=== PATIENT | female | born 1945 | race Caucasian/White ===

== ENCOUNTER → 2017-01-14 | Outpatient (CLI) | payer MEDICARE, BC ==
--- NOTE | 2017-01-14 15:24 | RADRPT ---
PROCEDURE: XR Left Hip and pelvis. CLINICAL INDICATION: Left hip pain. Pelvic pain. Postop. TECHNIQUE: Three views. Frontal pelvis. Frontal and lateral left hip. COMPARISON: No prior studies are available for comparison. FINDINGS: There is no fracture or dislocation. Vascular calcifications are present consistent with atherosclerosis. Surgical clips are present in the pelvis inferiorly. There is a left hip open reduction and internal fixation which appears satisfactory. The right hip is grossly normal. There is no lytic or blastic lesion. There are degenerative changes of the lower lumbar spine. IMPRESSION: 1. Satisfactory postoperative appearance of the left hip. 2. Atherosclerosis. 3. Prior pelvic surgery. 4. Degenerative changes of the lower lumbar spine. RPTAT: QQ .Lowell Mcdowell MD, MD Date Time Electronically viewed and signed by .Lowell Mcdowell MD, on 01/14/2017 15:24 .R/
--- NOTE | 2017-01-14 15:25 | RADRPT ---
PROCEDURE: XR Femur. CLINICAL INDICATION: Left leg pain. TECHNIQUE: AP and lateral views of the left femur were performed. COMPARISON: 04/05/2016. FINDINGS: There has been open reduction and internal fixation with a phani in the shaft of the femur and a screw in the neck of the femur. A locking screw is present distally in the femur. Alignment is satisfac tory. The soft tissues are normal. Articular surfaces are intact. There is no lytic or blastic lesion. IMPRESSION: 1. Satisfactory postoperative appearance of the left femur. RPTAT: QQ .Lowell Mcdowell MD, Date Time Electronically viewed and signed by .Lowell Mcdowell MD, on 01/14/2017 15:25 .R/
== END | disposition home or self-care (01) ==
LOC: HKI 13:59
PROVIDERS: ATTEND Orthopaedic Surgery
DX: M25.552 Pain in left hip (principal); R10.2 Pelvic and perineal pain; I70.90 Unspecified atherosclerosis
CPT/HCPCS: 73502; 73552